=== PATIENT | female | born 1970 | race Caucasian/White ===

== ENCOUNTER 2025-08-25 11:37 | Emergency (ER) | payer MEDICARE, OTHER ==
[~2025-08-25] VITALS: Ht 165.1 cm; Wt 100.0 kg
[~2025-08-25 11:37] MED LIST: ARAVA20 MG PO; BUPROPION HCL150 M2 PO; BUPROPION XL150 MG PO; CEFUROXIME500 MG PO; CLOBETASOL EMOL15 GM TOP; COLCRYS0.6 MG PO; FLOVENT DISKU100 MCG INH; FOLIC ACID1 MG PO; HYDROCODON-ACE1 EAC8 PO; IBUPROFEN800 MG; IPRAT-ALBUT 0.5-3 ML INH; MEDROL4 M1 PO; METHOTREXATE2.5 MG; METHOTREXATE2.5 MG PO; MUPIROCIN22 GM TOP; NAPROXEN500 MG PO; NEURONTIN100 MG PO; NICOTINE LOZENGE2 MG BUCCAL; NORCO 10-325 T1 EACH PO; NORCO 5-325 TA1 EACH; NORCO 5-325 TA1 EACH PO; PERCOCET 5-3251 EACH PO; PREDNISONE20 MG; PREDNISONE20 MG PO; REMICADE100 MG/10 IV; STELARA90 MG/1 ML SUB-Q; VENTOLIN HFA18 GM INH
[2025-08-25] MEDS ORDERED: SEROQUEL50 MG PO (11:52)
[2025-08-25] MEDS ORDERED: TREMFYA100 MG/11 SUB-Q (11:53)
[2025-08-25] MEDS ORDERED: SINGULAIR10 MG PO (11:53)
[2025-08-25 11:54] LABS: BASOPHILS 0.7 % (0.1-1.2); EOSINOPHILS 1.6 % (0.7-5.8); LYMPHOCYTES 24.4 % (19.3-51.7); MCH 29.7 PG (25.6-32.2); MCHC 34.6 g/dL (32.2-35.5); MCV 85.7 fL (79.4-94.8); MONOCYTES 9.8 % (4.7-12.5); NEUTROPHILS 63.3 % (34.0-71.1); RBC 5.73 M/uL (3.93-5.22)
[2025-08-25 12:12] LABS: ALT (SGPT) 23.0 U/L (14-59); AST (SGOT) 18.0 U/L (15-37); GLOMERULAR FILTRATION RATE,EST 75.0 mL/min (>60); PROTEIN, TOTAL 7.9 g/dL (6.4-8.2); UREA NITROGEN 13.0 mg/dL (7-18)
[2025-08-25] MEDS ORDERED: SODIUM CHLORIDE 0.9% 1,000 ML IV ONE (12:45)
[2025-08-25] MEDS ORDERED: POTASSIUM CHLORIDE 10 MEQ TABCR PO ONE (13:00)
[2025-08-25] MEDS ORDERED: DIPHENOXYLATE/ATROPINE 1 EA TAB PO ONE (14:00)
[2025-08-25] MEDS ORDERED: ONDANSETRON ODT8 MG PO (15:00)
[2025-08-25] MEDS ORDERED: LOMOTIL TABLET1 EACH PO (15:00)
[2025-08-25 15:08] VITALS: BP 107/75
--- NOTE | 2025-08-28 07:36 | EKG ---
[facility] [address] [facility] [place], [place] [address] Signed Normal sinus rhythm with sinus arrhythmia Nonspecific ST and T wave abnormality Abnormal ECG No previous ECGs available Confirmed by Coy Dooley DO ([id number]) on 08/28/2025 7:36:15 AM Electronically Signed By: COY DOOLEY DO 08/28/25 0736 PATIENT NAME: TREVA BOURNE Electrocardiogram DATE OF : 68 PHYSICIAN: COY DOOLEY DO REPORT #: [id number] REPORT IS CONFIDENTIAL AND NOT TO BE RELEASED WITHOUT AUTHORIZATION
== END 2025-08-25 15:07 | disposition home or self-care (01) ==
LOC: ED 11:37
PROVIDERS: Emergency Medicine
DX: K52.9 Noninfective gastroenteritis and colitis, unspecified (principal); J44.9 Chronic obstructive pulmonary disease, unspecified; F17.200 Nicotine dependence, unspecified, uncomplicated; Z88.8 Allergy status to other drugs, medicaments and biological substances
CPT/HCPCS: 36415; 80053; 83735; 84484; 85025; 93005; 93010; 96361; 96374; 99284-25; A9270; J2405; J7030